=== PATIENT | female | born 1965 | race African-American/Black ===

== ENCOUNTER 2017-01-22 11:06 | Emergency (ER) | payer SELFPAY ==
--- NOTE | 2017-01-22 11:35 | PHYS DOC ---
Past Medical History Past Medical History: Asthma Past Surgical History: Hysterectomy Alcohol Use: None Drug Use: None Adult General Chief Complaint Chief Complaint: HYPERVENTILATION HPI HPI Patient is a 51 year old female presents emergency department stating that she becomes short of breath and feels that her heart is beating out of her skin on her right neck area. Patient states that this happens during the day when she is at work will subside for a while and then it'll start back up at night. Patient denies any history of anxiety she does state she has a history of asthma. She denies taking any medications for asthma. His any chest pain she denies any shortness of air difficulty breathing. Review of Systems Review of Systems Constitutional: Denies fever or chills [] Eyes: Denies change in visual acuity, redness, or eye pain [] HENT: Denies nasal congestion or sore throat [] Respiratory: Denies cough or shortness of breath [] Cardiovascular: No additional information not addressed in HPI [] GI: Denies abdominal pain, nausea, vomiting, bloody stools or diarrhea [] : Denies dysuria or hematuria [] Musculoskeletal: Denies back pain or joint pain [] Integument: Denies rash or skin lesions [] Neurologic: Denies headache, focal weakness or sensory changes [] Endocrine: Denies polyuria or polydipsia [] Current Medications Current Medications Current Medications Medications (Trade) Dose Ordered Sig/Afsaneh Start Time Stop Time Status Last Admin Dose Admin Info (Do NOT chart on this entry -- for MONITORING) 1 each PRN DAILY PRN 01/22/17 12:15 01/24/17 12:14 Iohexol (Omnipaque 300 Mg/ml) 75 ml 1X ONCE 01/22/17 12:15 01/22/17 12:16 DC 01/22/17 12:46 75 ML Allergies Allergies Allergies Coded Allergies Type Severity Reaction Last Updated Verified No Known Drug Allergies 11/18/15 No Physical Exam Physical Exam Constitutional: Well developed, well nourished, no acute distress, non-toxic appearance. [] HENT: Normocephalic, atraumatic, bilateral external ears normal, oropharynx moist, no oral exudates, nose normal. [] Eyes: PERRLA, EOMI, conjunctiva normal, no discharge. [] Neck: Normal range of motion, no tenderness, supple, no stridor. Patient was noted to have visual pulse in the right carotid, unable to visualize pulse in the left carotid. Cardiovascular:Heart rate regular rhythm, no murmur [] Lungs & Thorax: Bilateral breath sounds clear to auscultation [] Skin: Warm, dry, no erythema, no rash. [] Back: No tenderness Extremities: No tenderness, no cyanosis, no clubbing, ROM intact, no edema. [] Neurologic: Alert and oriented X 3, normal motor function, normal sensory function, no focal deficits noted. [] Psychologic: Affect normal, judgement normal, mood normal. [] Current Patient Data Vital Signs Vital Signs Date Time Temp Pulse Resp B/P (MAP) Pulse Ox O2 Delivery O2 Flow Rate FiO2 01/22/17 11:18 98.0 83 18 100 Room Air 98.0 EKG EKG [] Radiology/Procedures Radiology/Procedures [facility] [address] [place] [address] IMAGING REPORT Signed PATIENT: YUE PENN ACCOUNT: [id number] : 1965 LOCATION: ER AGE: 51 SEX: F EXAM STATUS: REG ER ORD. PHYSICIAN: GOPAL ROSSI APRN REASON: visualize heart beating right carotid not on the left PROCEDURE: CT ANGIOGRAPHY NECK Examination: CT angiogram of the neck No comparison available. Clinical Indication: Pulsations seen in the right carotid but not in the left carotid. Technical factors: Routine CTA of the neck was performed with IV contrast. Coronal and sagittal 3-D. 3-D Volumetric reformats were performed. Findings: The origin of the great vessels from the arch of the aorta are patent. There is common origin of the right innominate and the left common carotid artery. The right innominate artery is tortuous extending towards the anterior aspect of the neck. The right common carotid artery is tortuous as well and courses anteriorly initially and then turns sharply posteriorly and courses normally behind the level of the right lobe of the thyroid gland. There is some narrowing of the right common carotid artery at the level of tortuosity anteriorly. The left common artery is anteriorly tortuous. No evidence of atherosclerosis.. The right innominate artery is slightly more prominent. The origin of the vertebral arteries grossly appears patent. The visualized middle cerebral arteries, anterior cerebral arteries, basilar arteries patent The visualized posterior intracerebral arteries are patent There is origin of the left posterior cerebral artery. The right posterior commuting artery is not clearly identified Mild degenerative changes cervical spine. Impression: 1. Tortuous appearing right innominate and right common carotid artery. There is somewhat mild tortuous appearing left common carotid artery. There is some narrowing of the right common carotid artery at the level of tortuosity. Ultrasound carotids may be useful for evaluation of the velocities. PQRS Compliance Statement: One or more of the following individualized dose reduction techniques were utilized for this examination: 1. Automated exposure control 2. Adjustment of the mA and/or kV according to patient size 3. Use of iterative reconstruction technique DICTATED and SIGNED BY: NEIDA MOSES MD DATE: 01/22/17 131 CC: GOPAL ROSSI APRN; NO PCP ~ [][facility] [address] [place] [address] IMAGING REPORT Signed PATIENT: YUE PENN ACCOUNT: [id number] : 1965 LOCATION: ER AGE: 51 SEX: F EXAM STATUS: REG ER ORD. PHYSICIAN: GOPAL ROSSI APRN REASON: tortuosity of bilateral carotid, US recommended, no PCP PROCEDURE: DOPPLER CAROTID BILAT Exam performed: Carotid Doppler. History: Tortuous carotids, pulsations in the right carotid Technique: Real-time grayscale and Doppler evaluation of the carotid system was performed and images are all obtained. Findings: There is minimal within both carotid bulbs extending into the internal carotid artery bilaterally. Doppler interrogation reveals normal waveforms and velocities as follows . Peak systolic velocity within the right common carotid artery ranges from 37-60 cm/sec whereas on the left ranges from 54-75 cm/sec . The peak systolic velocity within the right ICA ranges from 35-58 cm/sec whereas on the left ranges from 30-55 cm/sec. The ICA to CCA ratio on the right ranges from 0.58-0.96whereas on the left ranges from 0.40-0.73. There is antegrade flow in both vertebral arteries. The bilateral carotids are tortuous. Impression: 1.Mild plaquing involving both carotid systems without any flow-limiting stenosis. Note: Stenosis calculations for CT, MR and conventional angiography are based upon determination of the distal ICA diameter in accordance with the NASCET methodology. Stenosis calculations for doppler studies are derived from validated velocity criteria which are known to correlate with NASCET methodology of determining stenosis. DICTATED and SIGNED BY: NEIDA MOSES MD DATE: 01/22/17 144 CC: GOPAL ROSSI APRN; NO PCP ~ Course & Med Decision Making Course & Med Decision Making Pertinent Labs and Imaging studies reviewed. (See chart for details) CT angiogram of the neck showed torturous appearing right innominate and right common carotid artery. There is somewhat mild torturous appearing left common carotid artery. There is some narrowing of the right common carotid artery at the level of the tortuosity. Ultrasound carotids may be useful for evaluation of the velocities. Carotid Dopplers were completed with mild plaquing involving both carotid systems without any flow-limiting stenosis noted. Patient will be encouraged to follow-up with her primary care physician for further evaluation. Patient will be discharged home in stable condition signs and symptoms to return back to emergency department as been provided. Patient agrees with discharge instructions treatment regimens and follow-up recommendations. [] Dragon Disclaimer Dragon Disclaimer This electronic medical record was generated, in whole or in part, using a voice recognition dictation system. Departure Departure Impression: Primary Impression: Neck complaint Disposition: 01 HOME, SELF-CARE Condition: STABLE Referrals: NO PCP (PCP) Patient Instructions: Carotid Artery Disease Additional Instructions: Ultrasound report showed mild plaquing and both of your carotid systems without any limiting stenosis. Activity as tolerated. Follow-up with her primary care physician for further evaluation. Return back to emergency prior signs symptoms of become worse. GOPAL ROSSI APRN January 22, 2017 11:35
[2017-01-22] MEDS ORDERED: IOHEXOL 300 MG/ML 75 ML VIAL IV ONE (12:15)
[2017-01-22] MEDS ORDERED: CONTRAST GIVEN MC PRN (12:15)
--- NOTE | 2017-01-22 13:31 | RAD ---
Examination: CT angiogram of the neck No comparison available. Clinical Indication: Pulsations seen in the right carotid but not in the left carotid. Technical factors: Routine CTA of the neck was performed with IV contrast. Coronal and sagittal 3-D. 3-D Volumetric reformats were performed. Findings: The origin of the great vessels from the arch of the aorta are patent. There is common origin of the right innominate and the left common carotid artery. The right innominate artery is tortuous extending towards the anterior aspect of the neck. The right common carotid artery is tortuous as well and courses anteriorly initially and then turns sharply posteriorly and courses normally behind the level of the right lobe of the thyroid gland. There is some narrowing of the right common carotid artery at the level of tortuosity anteriorly. The left common artery is anteriorly tortuous. No evidence of atherosclerosis.. The right innominate artery is slightly more prominent. The origin of the vertebral arteries grossly appears patent. The visualized middle cerebral arteries, anterior cerebral arteries, basilar arteries patent The visualized posterior intracerebral arteries are patent There is origin of the left posterior cerebral artery. The right posterior commuting artery is not clearly identified Mild degenerative changes cervical spine. Impression: 1. Tortuous appearing right innominate and right common carotid artery. There is somewhat mild tortuous appearing left common carotid artery. There is some narrowing of the right common carotid artery at the level of tortuosity. Ultrasound carotids may be useful for evaluation of the velocities. PQRS Compliance Statement: One or more of the following individualized dose reduction techniques were utilized for this examination: 1. Automated exposure control 2. Adjustment of the mA and/or kV according to patient size 3. Use of iterative reconstruction technique
--- NOTE | 2017-01-22 14:54 | RAD ---
Exam performed: Carotid Doppler. History: Tortuous carotids, pulsations in the right carotid Technique: Real-time grayscale and Doppler evaluation of the carotid system was performed and images are all obtained. Findings: There is minimal within both carotid bulbs extending into the internal carotid artery bilaterally. Doppler interrogation reveals normal waveforms and velocities as follows . Peak systolic velocity within the right common carotid artery ranges from 37-60 cm/sec whereas on the left ranges from 54-75 cm/sec . The peak systolic velocity within the right ICA ranges from 35-58 cm/sec whereas on the left ranges from 30-55 cm/sec. The ICA to CCA ratio on the right ranges from 0.58-0.96whereas on the left ranges from 0.40-0.73. There is antegrade flow in both vertebral arteries. The bilateral carotids are tortuous. Impression: 1.Mild plaquing involving both carotid systems without any flow-limiting stenosis. Note: Stenosis calculations for CT, MR and conventional angiography are based upon determination of the distal ICA diameter in accordance with the NASCET methodology. Stenosis calculations for doppler studies are derived from validated velocity criteria which are known to correlate with NASCET methodology of determining stenosis.
[2017-01-22 15:10] VITALS: BP 158/97
[2017-01-25 09:44] LABS: POTASSIUM ISTAT 3.9 mmol/L (3.5-5.0)
== END 2017-01-22 15:10 | disposition home or self-care (01) ==
LOC: ER 13:26
DX: R23.8 Other skin changes (principal); R06.02 Shortness of breath; J45.909 Unspecified asthma, uncomplicated; Z90.710 Acquired absence of both cervix and uterus
CPT/HCPCS: 70498; 80047; 93880; 99284; Q9967